=== PATIENT | female | born 1980 | race Caucasian/White ===

== ENCOUNTER 2018-09-03 09:54 | Emergency (ER) | payer OTHER ==
[~2018-09-03] VITALS: Ht 162.6 cm; Wt 60.5 kg
[2018-09-03 09:54] VITALS: BP 99/58
[2018-09-03] MEDS ORDERED: VITA200016 PO (10:03)
[2018-09-03] MEDS ORDERED: ZANA4CAP PO (10:03)
[2018-09-03] MEDS ORDERED: NAPR220C PO (10:03)
[2018-09-03] MEDS ORDERED: MEDR4PAK PO (10:38)
== END 2018-09-03 10:47 | disposition home or self-care (01) ==
LOC: M ED 09:54
DX: M54.42 Lumbago with sciatica, left side (principal); M51.36 Other intervertebral disc degeneration, lumbar region; Z79.899 Other long term (current) drug therapy